=== PATIENT | male | born 1970 | race Caucasian/White ===

== ENCOUNTER → 2018-10-09 | Outpatient (CLI) | payer BC ==
--- NOTE | 2018-10-09 08:48 | Diagnostic Imaging Report ---
INDICATION: Chronic bilateral wrist pain. Time of exam: 8:33 AM Multiple views of bilateral wrists were obtained. Distal radius and ulna are intact. Right wrist does show some widening of the scapholunate space suggestive of scapholunate dissociation. No significant proximal capitate migration is seen. Distal radius and ulna are intact. No fracture is identified. Left wrist demonstrates distal radius and ulna to be intact. The carpus and metacarpals are unremarkable. No fractures are seen. Alignment is normal. 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 No acute bony abnormality is detected. Dictated by: Dictated on workstation # [id number]
== END ==
LOC: RAD FS 08:15
PROVIDERS: ATTEND Nurse Practitioner
DX: G89.29 Other chronic pain (principal); M25.531 Pain in right wrist; M25.532 Pain in left wrist

== ENCOUNTER → 2018-10-30 | Outpatient (CLI) | payer BC ==
--- NOTE | 2018-10-30 16:26 | Diagnostic Imaging Report ---
CLINICAL INDICATION: Patient with low back pain, left leg pain, and left thigh numbness. EXAM: MRI of the lumbar spine performed without IV contrast. Sequences include sagittal T2, sagittal T1, sagittal T2 fat-sat, and axial T2. COMPARISON: MRI of the lumbar spine without contrast dated 08/20/2011. FINDINGS: The visualized portions of the distal thoracic spinal cord, conus medullaris, and cauda equina nerve roots are unremarkable. The conus medullaris tip is seen at the upper L1 vertebral body level. There are Modic type I degenerative signal changes involving the L4-L5 and L5-S1 levels, which have progressed compared to the prior study. L5-S1: There is stable grade 1 anterolisthesis of L5 on S1. There is progression of the diffuse disc bulge with now severe loss of intervertebral disc height. There is uncovering of the posterior aspect of the disc. There is severe left facet arthropathy and moderate right facet arthropathy. There is no significant central canal narrowing. There is severe left neural foramen narrowing and [id number]-[id number] right neural foramen narrowing. L4-L5: Stable grade 1 retrolisthesis of L4 on L5. There is progression of a diffuse disc bulge with now severe loss of intervertebral disc height. There is interval decreased size of the previously seen posterior disc herniation component with caudal disc migration. There is no significant central canal narrowing. There is [id number] bilateral neural foramen narrowing again seen. L3-L4: There is development of a subtle posterior disc bulge. There is dpzw-ck-kipcquyx left neural foramen narrowing and mild right neural foramen narrowing which have progressed. L1-L2 and L2-L3: Unremarkable. IMPRESSION: 1: There is interval progression of severe degenerative disc disease and diffuse disc bulges at the L4-L5 and L5-S1 levels, grade 1 retrolisthesis of L4 on L5 and stable grade 1 anterolisthesis of L5 on S1. 2: There is interval decreased size of the previously seen L4-L5 disc herniation and caudal disc migration. Dictated by: Dictated on workstation # [id number]
== END ==
LOC: RAD 15:05
PROVIDERS: ATTEND Nurse Practitioner
DX: M51.17 Intervertebral disc disorders with radiculopathy, lumbosacral region (principal); M43.17 Spondylolisthesis, lumbosacral region
CPT/HCPCS: 72148

== ENCOUNTER → 2020-05-27 | Outpatient (CLI) | payer BC ==
[~2020-05-27] MED LIST: CATHETER FLUSH 10 ML SYR IV PRN
--- NOTE | 2020-06-01 10:47 | Diagnostic Imaging Report ---
INDICATION: Right upper quadrant pain and tenderness. TECHNIQUE: The patient was administered 5.2 mCi of technetium 99m Choletec intravenously and imaging over the abdomen was performed. At 1 hour, the patient ingested 8 ounces of Ensure and the gallbladder ejection fraction was calculated. The patient denied discomfort during the exam. FINDINGS: There is normal homogeneous uptake of activity by the liver with prompt excretion of activity into the gallbladder and common duct. There is normal passage of activity into the small bowel. The gallbladder ejection fraction is 96%. IMPRESSION: 1. Patent cystic duct and common bile duct. 2. Gallbladder ejection fraction of 96%. Dictated by: Dictated on workstation # [id number]
== END ==
LOC: CARD 12:00
PROVIDERS: ATTEND Emergency Medicine
DX: K82.8 Other specified diseases of gallbladder (principal)
CPT/HCPCS: 78227; A9537